=== PATIENT | female | born 1980 | race Caucasian/White ===

== ENCOUNTER 2016-11-23 15:04 | Emergency (ER) | payer OTHER | END 2016-11-23 15:11 | disposition left against medical advice (07) | DX: Z53.21 Procedure and treatment not carried out due to patient leaving prior to being seen by health care provider (principal) ==

== ENCOUNTER 2016-11-23 18:43 | Emergency (ER) | payer OTHER ==
[2016-11-23] MEDS ORDERED: OXYCODONE/APAP 5/325 TAB PO ONE (19:31)
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
[2016-11-23 21:19] VITALS: BP 110/74; PULSE 69; RESP 16; TEMP 97.9; O2SAT 95
== END 2016-11-23 21:19 | disposition home or self-care (01) ==
DX: S30.0XXA Contusion of lower back and pelvis, initial encounter (principal); S29.9XXA Unspecified injury of thorax, initial encounter; T76.11XA Adult physical abuse, suspected, initial encounter; Y04.8XXA Assault by other bodily force, initial encounter